=== PATIENT | male | born 1950 | race Hispanic/Latino ===

== ENCOUNTER 2017-03-05 10:15 | Day surgery (SDC) | payer MEDICARE ==
[~2017-03-05 10:15] MED LIST: ANCEF/STERILE WATER 2 GM/20 ML IV NR; DECADRON ONE; DIPRIVAN 10 MG/ML IV ONE; SUBLIMAZE ONE; XYLOCAINE MPF 2% ONE; ZOFRAN ONE
[2017-03-05] MEDS ORDERED: MARCAINE 0.5% 30 ML INFILTRATI ONE (10:41)
[2017-03-05] MEDS ORDERED: XYLOCAINE 1%/ EPI 1:100,000 INFILTRATI ONE (10:41)
[2017-03-05] MEDS ORDERED: NACL BACTERIOSTATIC INFILTRATI ONE (10:49)
[2017-03-05] MEDS ORDERED: NACL 0.9% 1000 ML 1,000 ML IV SCH (11:00)
[2017-03-05] MEDS ORDERED: PEPCID PO NR (11:00)
--- NOTE | 2017-03-05 11:11 | Anesthesia Day of Surgery ---
Anesthesia Day of Surgery - Day of Surgery Patient Examined: Yes Patient H&P Reviewed: Yes Patient is NPO: Yes Beta Blockers: Yes
--- NOTE | 2017-03-05 11:11 | Anesthesia Consultation ---
Anesthesia Consult and Med Hx Date of service: 03/05/17 - Airway Anesthetic Teeth Evaluation: Poor ROM Head & Neck: Adequate Mental/Hyoid Distance: Adequate Mallampati Class: Class II Intubation Access Assessment: Probably Good - Pulmonary Exam CTA: Yes - Cardiac Exam Cardiac Exam: RRR - Pre-Operative Health Status ASA Pre-Surgery Classification: ASA3 Proposed Anesthetic Plan: General - Pulmonary Hx Smoking: Yes (STOPPED X 6 MONTHS- 2PPD X 40 YRS) SOB: Yes (SOB) COPD: Yes (INHALER PRN) Hx Sleep Apnea: No (MEE PRE SCREEN HIGH RISK) - Cardiovascular System Hx Hypertension: Yes (X 1 - ON MEDS) Hx Heart Attack/AMI: No Hx Peripheral Vascular Disease: Yes (TIANA LEGS WITH EDEMA) - Central Nervous System Hx Back Pain: Yes (WITH LEFT LEG AND HIP PAIN) - Hematic Hx Anemia: Yes - Other Systems Hx Alcohol Use: Yes ("HEAVY DRINKER"- STOPPED 1978) Hx Cancer: No
[2017-03-05 11:20] LABS: Basophils % (Auto) 0.5 % (0.0-1.8); Eosinophils % (Auto) 0.6 % (0.0-4.3); Hematocrit 33.5 % (35.5-45.6); Hemoglobin 10.9 gm/dl (11.8-15.2); Mean Corpuscular HGB Conc 33 % (32-34); Mean Corpuscular Hemoglobin 26 pg (28-32); Mean Corpuscular Volume 80 fl (84-94); Platelet Count 372 K/mm3 (140-440); Red Blood Count 4.21 M/mm3 (3.65-5.03); Red Cell Distribution Width 16.1 % (13.2-15.2)
[2017-03-05] MEDS ORDERED: LOPRESSOR IV ONE (12:15)
[2017-03-05] MEDS ORDERED: NACL 0.9% IR ONE (12:19)
[2017-03-05] MEDS ORDERED: MARCAINE 0.5% INFILTRATI ONE (12:19)
--- NOTE | 2017-03-05 12:58 | Operative Report ---
Operative Report Operative Report: Date of procedure: 03/05/2017 Pre-operative diagnosis: Right axillary lymphadenopathy Post-operative diagnosis: Same Procedure name(s): Right axillary excisional lymph node biopsy Surgeon: Humza Carnes MD Baby Stroller Rental Clerk: None Anesthesia: Mac, 0.25% Marcaine, 1% lidocaine EBL: Minimal Complications: None Instrument Count: Accurate Indications: This is a 67-year-old male with a history of a adenopathy in the right axilla. This was causing lymphedema in the right arm. He was offered the above-named procedures possible diagnostic modality. The risks and benefits of discussed until all questions were answered. He was subsequently brought to the OR. Findings: Hard and firm right axillary mass with clumped lymphadenopathy Procedure: We reviewed the informed consent. The patient was then placed supine upon the table. After adequate anesthesia was reached, the patient was prepped and draped in the usual sterile fashion. We infiltrated local anesthetic in a field block manner. We then made an incision through the skin using a 15 blade at the base of the axilla. Dissection was carried down to the palpable lymphadenopathy in the axilla and was dissected free from surrounding fascial attachments. The findings were consistent with what was noted above. We the specimen and handed off the table to be sent to pathology for further evaluation. We then ensured hemostasis. Approximated the subcutaneous tissues using a 3-0 Vicryl. We used 4-0 Monocryl to close the skin. The wound was bandaged sterilely. The patient tolerated procedure well, was awakened and transferred to recovery room in no apparent distress.
--- NOTE | 2017-03-05 13:00 | Short Stay Summary ---
Short Stay Documentation Date of service: 03/05/17 - History H&P: obtained from office - Allergies and Medications Current Medications: Allergies No Known Allergies Allergy (Verified 03/04/17 14:33) Home Medications Medication Instructions Recorded Confirmed Last Taken Type Albuterol Sulfate [Ventolin HFA] 2 puff IH Q4H PRN 02/27/17 02/27/17 Unknown History Aspirin [Adult Low Dose Aspirin EC] 81 mg PO DAILY 02/27/17 02/27/17 Unknown History AtorvaSTATin [Lipitor] 20 mg PO QHS 02/27/17 02/27/17 Unknown History Carvedilol [Coreg] 12.5 mg PO BID 02/27/17 02/27/17 Unknown History Ibuprofen [Motrin] 800 mg PO Q8HR PRN 02/27/17 02/27/17 Unknown History Lisinopril [Zestril] 20 mg PO QDAY 02/27/17 02/27/17 Unknown History Nitroglycerin [Nitrostat] 0.4 mg SL Q5M PRN 02/27/17 02/27/17 Unknown History Potassium Chloride [Klor-Con 10] 20 meq PO DAILY 02/27/17 02/27/17 Unknown History Tamsulosin [Flomax] 0.4 mg PO QDAY 02/27/17 02/27/17 Unknown History hydrALAZINE [Apresoline] 25 mg PO DAILY 02/27/17 02/27/17 Unknown History Active Medications Cefazolin Sodium (Ancef/Sterile Water 2 Gm/20 Ml) 2 gm IV PREOP NR Stop: 03/05/17 23:00 Famotidine (Pepcid) 20 mg PO PREOP NR Stop: 03/05/17 15:00 Last Admin: 03/05/17 11:34 Dose: 20 mg Sodium Chloride (Nacl 0.9% 1000 Ml) 1,000 mls @ 100 mls/hr IV DIRECT OLIVERIO Last Admin: 03/05/17 11:00 Dose: 100 mls/hr - Brief post op/procedure progress note Date of procedure: 03/05/17 Pre-op diagnosis: right axillary lymphadenopathy Post-op diagnosis: same Procedure: Right Axillary excisional lymph node biopsy Anesthesia: GETA, local Findings: As above Surgeon: DANDRE AMAYA Estimated blood loss: minimal Pathology: list (right axillary lymph node) Specimen disposition: to lab Condition: stable - Disposition Condition at discharge: Stable Disposition: DC-01 TO HOME OR SELFCARE Short Stay Discharge Plan Follow up with: DANDRE AMAYA MD [Primary Care Provider] - 7 Days Prescriptions: HYDROcodone/APAP 5-325 [[place] 5/325] 1 each PO Q6HR PRN #10 tablet PRN Reason: Pain
[2017-03-05] MEDS ORDERED: NORCO 5/325 PO PRN (13:19)
[2017-03-05 14:42] VITALS: BP 115/57
== END 2017-03-05 15:05 | disposition home or self-care (01) ==
LOC: OR 10:15
PROVIDERS: ATTEND Surgery
DX: R59.1 Generalized enlarged lymph nodes (principal); J44.9 Chronic obstructive pulmonary disease, unspecified; I10 Essential (primary) hypertension; D64.9 Anemia, unspecified; F10.21 Alcohol dependence, in remission; Z87.891 Personal history of nicotine dependence; Z86.79 Personal history of other diseases of the circulatory system; Z79.899 Other long term (current) drug therapy; Z79.82 Long term (current) use of aspirin; Z95.1 Presence of aortocoronary bypass graft; Z80.0 Family history of malignant neoplasm of digestive organs
CPT/HCPCS: 36415; 38500; 84132; 85025; 88305; 88307; 88341; 88342; J0690; J1100; J2405; J2704; J3010; J7030

== ENCOUNTER 2017-04-02 05:54 | Day surgery (SDC) | payer MEDICARE ==
[2017-04-02] MEDS ORDERED: VERSED IV NR (06:00)
[2017-04-02] MEDS ORDERED: ANCEF/STERILE WATER 2 GM/20 ML IV NR (06:00)
[2017-04-02] MEDS ORDERED: PEPCID PO NR (06:00)
[2017-04-02] MEDS ORDERED: NACL 0.9% 1000 ML 1,000 ML IV SCH (06:00)
[2017-04-02] MEDS ORDERED: NACL BACTERIOSTATIC INFILTRATI ONE (06:45)
[2017-04-02] MEDS ORDERED: DIPRIVAN 10 MG/ML IV ONE ×4 (07:09→09:05)
[2017-04-02] MEDS ORDERED: SUBLIMAZE ONE (07:09)
--- NOTE | 2017-04-02 07:15 | Anesthesia Consultation ---
Anesthesia Consult and Med Hx Date of service: 04/02/17 - Airway Anesthetic Teeth Evaluation: Dentures ROM Head & Neck: Adequate Mental/Hyoid Distance: Adequate Mallampati Class: Class II Intubation Access Assessment: Probably Good - Pulmonary Exam CTA: Yes - Cardiac Exam Cardiac Exam: RRR - Pre-Operative Health Status ASA Pre-Surgery Classification: ASA3 Proposed Anesthetic Plan: MAC - Pulmonary Hx Smoking: Yes (STOPPED X 6 MONTHS- 2PPD X 40 YRS) SOB: Yes (SOB) COPD: Yes (INHALER PRN) Home Oxygen Therapy: No Hx Sleep Apnea: No (MEE PRE SCREEN HIGH RISK) - Cardiovascular System Hx Hypertension: Yes (X 1 YR - ON MEDS) Hx Coronary Artery Disease: Yes (CABG 5 YRS AGO) Hx Heart Attack/AMI: No Hx Peripheral Vascular Disease: Yes (TIANA LEGS WITH EDEMA) - Central Nervous System Hx Seizures: No CVA: No Hx Back Pain: Yes (WITH LEFT LEG AND HIP PAIN) - Endocrine Hx Renal Disease: No Hx Cirrhosis: No Hx Non-Insulin Dependent Diabetes: No Hx Hypothyroidism: No - Hematic Hx Anemia: Yes - Other Systems Hx Alcohol Use: Yes ("HEAVY DRINKER"- STOPPED 1978) Hx Cancer: Yes (RECENT DX LYMPHOMA) - Additional Comments Anesthesia Medical History Comments: RIGHT ARM SWOLLEN. PATIENT REPORTS FROM CANCER
[2017-04-02] MEDS ORDERED: HEPARIN 10,000 UNITS/10 ML ONE (07:16)
[2017-04-02] MEDS ORDERED: NACL 0.9% 250ML 250 ML ONE (07:17)
[2017-04-02] MEDS ORDERED: MARCAINE 0.25% INFILTRATI ONE ×2 (07:17→07:53)
[2017-04-02] MEDS ORDERED: XYLOCAINE 1% 20 mL ONE (07:18)
--- NOTE | 2017-04-02 07:20 | Anesthesia Day of Surgery ---
Anesthesia Day of Surgery - Day of Surgery Patient Examined: Yes Patient H&P Reviewed: Yes Patient is NPO: Yes Beta Blockers: Yes
[2017-04-02] MEDS ORDERED: MORPHINE IV PRN (07:30)
[2017-04-02] MEDS ORDERED: ZOFRAN IV PRN (07:30)
[2017-04-02] MEDS ORDERED: NACL 0.9% IR ONE (07:52)
[2017-04-02] MEDS ORDERED: HEPARIN 10,000 UNITS/10 ML IV ONE (07:53)
[2017-04-02] MEDS ORDERED: NACL 0.9% 250ML IV ONE (07:53)
[2017-04-02] MEDS ORDERED: HEPARIN IV ONE (07:53)
[2017-04-02] MEDS ORDERED: XYLOCAINE 1% 20 mL INFILTRATI ONE (07:53)
[2017-04-02] MEDS ORDERED: VERSED ONE (07:54)
[2017-04-02] MEDS ORDERED: XYLOCAINE MPF 2% ONE (08:00)
[2017-04-02] MEDS ORDERED: ZOFRAN ONE (08:33)
--- NOTE | 2017-04-02 09:42 | Post Operative Note ---
Pre-op diagnosis: history of lymphoma Post-op diagnosis: same Procedure: Insertion of Lynogk-r-Jhbi using sono site and ultrasound guidance Anesthesia: MAC Surgeon: DANDRE AMAYA Estimated blood loss: minimal Pathology: none Condition: stable Disposition: PACU
--- NOTE | 2017-04-02 09:44 | Short Stay Summary ---
Short Stay Documentation Date of service: 04/02/17 - Allergies and Medications Current Medications: Allergies No Known Allergies Allergy (Verified 03/04/17 14:33) Home Medications Medication Instructions Recorded Confirmed Last Taken Type Albuterol Sulfate [Ventolin HFA] 2 puff IH Q4H PRN 02/27/17 04/02/17 3 Days Ago History Aspirin [Adult Low Dose Aspirin EC] 81 mg PO DAILY 02/27/17 04/02/17 04/01/17 History AtorvaSTATin [Lipitor] 20 mg PO QHS 02/27/17 04/02/17 04/01/17 History Carvedilol [Coreg] 12.5 mg PO BID 02/27/17 04/02/17 04/01/17 History Nitroglycerin [Nitrostat] 0.4 mg SL Q5M PRN 02/27/17 04/02/17 1 Week Ago History Tamsulosin [Flomax] 0.4 mg PO QDAY 02/27/17 04/02/17 03/04/17 History HYDROcodone/APAP 5-325 [[place] 1 each PO Q6HR PRN #10 tablet 03/05/17 04/02/17 Rx 5/325] Promethazine [Phenergan TAB] 25 mg PO Q8HR PRN 03/05/17 04/02/17 1 Month Ago History Ciprofloxacin HCl [Ciprofloxacin 500 mg PO BID 04/02/17 04/02/17 04/01/17 History TAB] Active Medications Cefazolin Sodium (Ancef/Sterile Water 2 Gm/20 Ml) 2 gm IV PREOP NR Stop: 04/02/17 15:00 Famotidine (Pepcid) 20 mg PO PREOP NR Stop: 04/02/17 23:00 Last Admin: 04/02/17 07:22 Dose: 20 mg Sodium Chloride (Nacl 0.9% 1000 Ml) 1,000 mls @ 75 mls/hr IV DIRECT OLIVERIO Last Admin: 04/02/17 06:50 Dose: 75 mls/hr Morphine Sulfate (Morphine) 2 mg IV Q10MIN PRN PRN Reason: Pain, Moderate (4-6) Stop: 04/02/17 21:00 Ondansetron HCl (Zofran) 4 mg IV ONCE PRN PRN Reason: Nausea And Vomiting Stop: 04/02/17 16:00 - Brief post op/procedure progress note Date of procedure: 04/02/17 Pre-op diagnosis: history of lymphoma Post-op diagnosis: same Procedure: Insertion of Srccra-s-Gulz using sono site and ultrasound guidance Anesthesia: MAC Surgeon: DANDRE AMAYA Condition: stable - Disposition Condition at discharge: Stable Disposition: DC-01 TO HOME OR SELFCARE Short Stay Discharge Plan Follow up with: KESHA AGUAYO MD [Primary Care Provider] - 7 Days DANDRE AMAYA MD [Staff Physician] - 7 Days Prescriptions: HYDROcodone/APAP 5-325 [[place] 5-325 mg TAB] 1 each PO Q6HR PRN #10 tablet PRN Reason: Pain
--- NOTE | 2017-04-02 09:52 | Operative Report ---
Operative Report Operative Report: Date of procedure: 04/02/2017 Pre-operative diagnosis: Lymphoma Post-operative diagnosis: Same Procedure name(s): Insertion of Oqtklh-h-Iaay using SonoSite and ultrasound guidance Surgeon: Humza Carnes MD Lithographic Press Feeder: None Anesthesia: Mac, 0.25% Marcaine EBL: Minimal Complications: None Instrument Count: Correct Indications: This is a 67-year-old male with a history of lymphoma who was in need of long-term medications. The patient was noted to have inadequate veins for chemotherapy. He was offered the above named procedure as a possible treatment modality. The risks and benefits were discussed local questions answered. He was subsequently brought to the OR. Findings: As above Procedure: We reviewed informed consent. The patient was then placed supine upon the table. After adequate anesthesia was reached, the patient was then prepped and draped in the usual sterile fashion. We localized the internal jugular vein using SonoSite ultrasound. The area was localized using 1% lidocaine. We then accessed the internal jugular vein using an introducer needle. We placed a guidewire through the needle under fluoroscopic guidance we assured that it was adequately placed. At this time we turned our attention to the creation of the subcutaneous pocket for the port. A site was chosen on the anterior chest wall and this area was infiltrated local anesthetic. A 15 blade was then used to make a skin incision and using electrocautery.we dissected down to the anterior pectoralis fashion. A several centimeter pocket was then created to accommodate the port. At this time we attached a 8 Chinese Vortex Roxnjv-k-Empm to its catheter. This is been previously flushed with heparinized saline. We secured it to the anterior pectoralis fashion using 2 2- 0 Prolene sutures. A subcutaneous tunneler was used to pass the catheter subcutaneously to the insertion site on the neck. Over the guidewire we then placed a dilator sheath combo. The guidewire was removed and after measuring the catheter we removed the dilator and placed the catheters distal portion into the sheath. The Sheath was split leaving the catheter in place which was verified fluoroscopically. We then flushed the catheter using heparinized saline and infused concentrated 1000 units per cc heparin into the catheter to prevent clotting. We secured the 2-0 Prolene then irrigated the subcutaneous pocket. We then closed the subcutaneous tissues using a 3-0 Vicryl and closed the skin using a 4-0 Monocryl. The wound was bandaged sterilely. The patient tolerated the procedure well. They were awakened, and transferred to recovery room in no apparent distress.
--- NOTE | 2017-04-02 10:09 | Fluoroscopy Report ---
AP CHEST: HISTORY: Ycdjtx-m-Avcs insertion A left Ldqnic-i-Kwpp has been inserted which terminates in the mid SVC. There is no evidence for pneumothorax. Previous CABG changes. Borderline to mild cardiomegaly and pulmonary venous congestion are identified. Trace right pleural effusion is suspected. IMPRESSION: Adequate placement of the left Opnath-r-Zvtw. No pneumothorax. Mild volume overload.
[2017-04-02] MEDS ORDERED: NORCO 5/325 ONE (10:13)
--- NOTE | 2017-04-02 10:44 | Post Anesthesia Evaluation ---
- Post Anesthesia Evaluation Patient Participated: Yes Airway Patent: Yes Stable Respiratory Function: Yes Nausea/Vomiting: No Temp > 96.8F: Yes Pain Manageable: Yes Adequeate Hydration: Yes Anesthesia Complications: No Block Receding Appropriately: Not Applicable Patient on Ventilator: No
[2017-04-02] MEDS ORDERED: NORCO 5/325 PO ONE (11:00)
[2017-04-02 11:15] VITALS: BP 110/58
== END 2017-04-02 11:00 | disposition home or self-care (01) ==
LOC: OR 05:54
PROVIDERS: ATTEND Surgery
DX: C85.90 Non-Hodgkin lymphoma, unspecified, unspecified site (principal); J44.9 Chronic obstructive pulmonary disease, unspecified; I10 Essential (primary) hypertension; I25.10 Atherosclerotic heart disease of native coronary artery without angina pectoris; D64.9 Anemia, unspecified; F10.21 Alcohol dependence, in remission; Z95.1 Presence of aortocoronary bypass graft; Z86.79 Personal history of other diseases of the circulatory system; Z87.891 Personal history of nicotine dependence; Z98.890 Other specified postprocedural states; Z79.899 Other long term (current) drug therapy; Z80.0 Family history of malignant neoplasm of digestive organs
CPT/HCPCS: 36561; 77001; C1788; J0690; J1644; J2250; J2405; J2704; J3010; J7030; J7050